=== PATIENT | female | born 1940 | race Caucasian/White ===

== ENCOUNTER 2024-04-29 13:15 | Emergency (ER) | payer MEDICARE, SELFPAY ==
[2024-04-29 13:26] VITALS: BP 151/64; PULSE 72; RESP 16; TEMP 36.2; O2SAT 100; BMI 30.2
--- NOTE | 2024-04-29 13:32 | CRLHL7_ITS ---
For Patients: As a result of the Century Cures Act, medical imaging exams and procedure reports are released immediately into your electronic medical record. You may view this report before your referring provider. If you have questions, please contact your health care provider. INDICATION: Fall. On Eliquis. TECHNIQUE: CT head without contrast. COMPARISON: None. FINDINGS: Mild generalized volume loss, changes of chronic small vessel ischemic disease and remote lacunar infarct about the left basal ganglia. Intracranial atherosclerosis. There is no mass effect or midline shift. No hydrocephalus. No CT evidence of acute hemorrhage or infarction. No abnormal extra-axial fluid collection. Bone windows show no acute calvarial fracture. Paranasal sinuses and orbits as imaged are unremarkable. IMPRESSION: No acute intracranial abnormality. Dictated by Colten Pavon MD @ 04/29/2024 2:38:16 PM Please note that all CT scans at this facility use dose modulation, iterative reconstruction, and/or weight-based dosing when appropriate to reduce radiation dose to as low as reasonably achievable. Dictated by: Colten Pavon MD @ 04/29/2024 14:38:31 (Electronically Signed)
--- NOTE | 2024-04-29 15:01 | ED.FALL ---
HPI - Fall General Time Seen by Provider: 15:01 Date Seen: 04/29/24 Chief Complaint: Fall/Minor Trauma Stated Complaint: fell, was advised to be seen Time Seen by Provider: 04/29/24 14:48 Source: patient and RN notes reviewed Mode of arrival: ambulatory Limitations: no limitations History of Present Illness HPI Narrative: This 83yo female is brought in by family after falling and hitting her head. She was reaching for weights in a cupboard where her was exercising, doing his physical therapy. She looked up, lost her balance, fell backwards on the rowing machine and fell to the ground, hitting her head on the bike and the rowing machine. She did hit the inner part of her left ankle, it hurts to touch but there is absolutely no pain with ambulation. Her neck feels stiff, does hurt a bit when she turns to the left. Her left shoulder is hurting, thinks she may have pulled it somehow. No numbness tingling. She absolutely has no headache, no visual changes. No difficulty breathing, no chest wall pain, no abdominal pain. She has been ambulatory, there is no pain in her lower extremities with walking. She is on Eliquis for recent diagnosis of a blood clot. Nursing staff did do head CT on arrival appropriately and was able to review with the patient that this is not showing any acute traumatic change. Due to the volume and acuity in the ED, the patient did wait to be seen. MD complaint: fall Related Data Home Medications ?Medication ?Instructions ?Recorded ?Confirmed albuterol sulfate 90 mcg/actuation inhalation 04/29/24 aerosol inhaler (Ventolin HFA) apixaban 5 mg (74 tabs) tablets in mg PO 04/29/24 a dose pack (Eliquis DVT-PE Treat 30D Start) citalopram 20 mg tablet 20 mg PO QAM 04/29/24 04/29/24 esomeprazole magnesium 40 mg 40 mg PO QAM 04/29/24 04/29/24 capsule,delayed release estradiol 0.01% (0.1 mg/gram) 1 g vaginal 3XW 04/29/24 04/29/24 vaginal cream ezetimibe 10 mg tablet 10 mg PO DAILY 04/29/24 04/29/24 metformin 500 mg tablet,extended 500 mg PO QPM 04/29/24 04/29/24 release 24 hr mirabegron 25 mg tablet,extended 25 mg PO DAILY 04/29/24 04/29/24 release 24 hr (Myrbetriq) pantoprazole 40 mg tablet,delayed 40 mg PO QAM 04/29/24 04/29/24 release propranolol 60 mg capsule,24 60 mg PO DAILY 04/29/24 04/29/24 hr,extended release valsartan 160 mg tablet 160 mg PO DAILY 04/29/24 04/29/24 Allergies Allergy/AdvReac Type Severity Reaction Status Date / Time shellfish derived Allergy Severe Anaphylaxis Verified 04/29/24 13:26 codeine Allergy Intermediate Hives Verified 04/29/24 13:26 nitroglycerin Allergy Intermediate Hives Verified 04/29/24 13:26 [From Nitro-Bid] Penicillins Allergy Intermediate Hives Verified 04/29/24 13:26 Review of Systems Narrative: As per HPI. Exam Const: Vital Signs, click to edit/add: Vital Signs - 24 hr 04/29/24 13:26 Temperature 97.2 F L Pulse Rate [Pulse Oximeter] 72 Respiratory Rate 16 Blood Pressure [Ri ght Upper Arm] 151/64 H Pulse Oximetry 100 Oxygen Delivery Me thod Room Air This 83-year-old female is alert, interactive, no apparent distress. Face is atraumatic, no palpable tenderness spots over her scalp. Sclera clear, pupils equal round reactive. Speech is normal. No midline tenderness of her neck, she does have good range of motion of her neck but she states it feels a little stiff and painful along the left superior aspect in the paraspinous area. Otherwise no adenopathy, no thyromegaly masses or nodules. No midline tenderness over spine in her back. Lungs are clear, good air entry, wheezing or crackles. CV regular rate and rhythm, no murmur, normal S1-S2, no S3-S4. Abdomen is soft, nontender, nondistended. She has pain on range of motion of her left shoulder, gets painful when you get up to an arc of abduction about 90?. There is definite range of motion within the glenohumeral joint, no dislocation. Strength of her lower extremities is 5/5 and symmetric below the shoulder. She has no ecchymosis, erythema about the left ankle. The malleoli are nontender. Joint effusion is not present. She is ambulatory with a normal gait on examination, complains of no pain. Documenting provider has reviewed patient's vital signs: yes Course Course ED Course: Reviewed with patient that I do think we should get a neck CT just to ensure no underlying fracture. She is neurologically intact at this point, not altered, thus, will allow patient to splint her own neck. Will also get a left shoulder x-ray. We did discuss the possibility of traumatic tearing of the rotator cuff. With her pain, do think that we should make sure x-ray is negative. If she has ongoing shoulder pain, may need physical therapy and orthopedic evaluation. Reevaluation(s) Time of Reevaluation #1: 16:51 Reevaluation #1: Have reviewed the imaging reports. She has some degenerative changes in her cervical spine but no acute fracture. She did have the incidental finding of carotid calcification seen on the CT imaging of the neck. Have reviewed this, this should be further evaluated with carotid ultrasounds to see if there is any significant stenosis. She should talk to her primary care provider about this, certainly risk factor reduction should be undertaken. There is no fracture of the shoulder but there are some arthritis changes. Vital Signs Vital signs: Initial Vital Signs Temperature 97.2 F L 04/29/24 13:26 Temperature Source Temporal Artery Scan 04/29/24 13:26 Pulse Rate 72 04/29/24 13:26 Respiratory Rate 16 04/29/24 13:26 Blood Pressure 151/64 H 04/29/24 13:26 Blood Pressure Mean 93 04/29/24 13:26 Pulse Oximetry 100 04/29/24 13:26 Oxygen Delivery Method Room Air 04/29/24 13:26 Vital Signs Temperature 97.2 F L 04/29/24 13:26 Pulse Rate 72 04/29/24 13:26 Respiratory Rate 16 04/29/24 13:26 Blood Pressure 151/64 H 04/29/24 13:26 Pulse Oximetry 100 04/29/24 13:26 Oxygen Delivery Method Room Air 04/29/24 13:26 Temperature 97.2 F L 04/29/24 13:26 Pulse Rate 72 04/29/24 13:26 Respiratory Rate 16 04/29/24 13:26 Blood Pressure 151/64 H 04/29/24 13:26 Pulse Oximetry 100 04/29/24 13:26 Oxygen Delivery Method Room Air 04/29/24 13:26 MDM - Fall Imaging Data CT scan - head: Attestation: I have reviewed the pertinent imaging results. Radiologist's impression: Patient: MINI CASTILLO Facility:?[facility] Patient ID:?[id number] Site Patient ID:?[id number] Site :?[id number] Study:?CT-Head W/O-04/29/2024 2:06:54 PM Ordering Physician:JUDD LEARY Final Report: INDICATION: Fall. On Eliquis. TECHNIQUE: CT head without contrast. COMPARISON: None. FINDINGS: Mild generalized volume loss, changes of chronic small vessel ischemic disease and remote lacunar infarct about the left basal ganglia. Intracranial atherosclerosis. There is no mass effect or midline shift. No hydrocephalus. No CT evidence of acute hemorrhage or infarction. No abnormal extra-axial fluid collection. Bone windows show no acute calvarial fracture. Paranasal sinuses and orbits as imaged are unremarkable. IMPRESSION: No acute intracranial abnormality. Dictated by Colten Pavon MD @ 04/29/2024 2:38:16 PM Please note that all CT scans at this facility use dose modulation, iterative reconstruction, and/or weight-based dosing when appropriate to reduce radiation dose to as low as reasonably achievable. Dictated by: Colten Pavon MD @ 04/29/2024 14:38:31 (Electronic Signature) CT cervical spine: Attestation: I have reviewed the pertinent imaging results. Radiologist's impression: Patient: MINI CASTILLO Facility:?[facility] Patient ID:?[id number] Site Patient ID:?[id number]. Site :?[id number] Study:?CT-Spine Cervical -04/29/2024 3:48:39 PM Ordering Physician:Ruth Davila Final Report: Indication: Fall, neck pain Technique: Noncontrast axial CT of the cervical spine with coronal and sagittal reformats. Comparison: Same-day CT head Findings: Slight reversal of the normal cervical lordosis. Degenerative grade 1 anterolisthesis at C3-4, C4-5 and C7-T1. Craniocervical junction appears within normal limits. No acute fracture identified. Scattered spondylosis, with shallow posterior disc-osteophyte complexes at C5-6 and C6-7 contributing to mild spinal canal narrowing. Uncovertebral and facet arthropathy contribute to multilevel neural foraminal stenosis, greatest on the left at C3-4, bilaterally at C5-6 and C6-7. No suspicious findings identified in the paraspinal soft tissues. Calcific plaquing at the carotid bifurcations. Included lung apices are clear. Staging Technician images demonstrate reverse right shoulder arthroplasty. Impression: 1. No evidence of acute fracture or traumatic malalignment in the cervical spine. 2. Cervical spondylosis as detailed. Please note that all CT scans at this facility use dose modulation, iterative reconstruction, and/or weight-based dosing when appropriate to reduce radiation dose to as low as reasonably achievable. Dictated by Niecy Ernst MD @ 04/29/2024 4:09:31 PM (Electronic Signature) XR left shoulder: Attestation: I have reviewed the pertinent imaging results. My impression: I do not appreciate any acute fracture on my preliminary review of the shoulder x-rays. Radiologist's impression: Patient: MINI CASTILLO Facility:?[facility] Patient ID:?[id number] Site Patient ID:?[id number]. Site :?[id number] Study:?XRay-Shoulder Left 3 VIEW-04/29/2024 3:38:41 PM Ordering Physician:Ruth Davila Final Report: Indication: Fall Technique: Four views of the left shoulder Comparison: None Findings/impression : Normal alignment and mineralization, without displaced fracture, dislocation or suspicious bony lesion. Degenerative changes are present within the acromioclavicular and glenohumeral joints. There are no soft tissue radiopaque foreign bodies. Dictated by Ant Alexandre MD @ 04/29/2024 4:38:46 PM (Electronic Signature) Discharge Plan Discharge Clinical Impression: Acute neck pain, Acute pain of left shoulder Fall Qualifiers: Encounter type: initial encounter Qualified Code(s): W19.XXXA - Unspecified fall, initial encounter Closed head injury Qualifiers: Encounter type: initial encounter Qualified Code(s): S09.90XA - Unspecified injury of head, initial encounter Patient Disposition: Home, Self-Care Condition: Stable Instructions: Fall Prevention for Older Adults (ED), Head Injury (ED), Shoulder Pain (ED), Acute Neck Pain (ED) Additional Instructions: Use Tylenol per bottle directions as needed for any pain control. Can try ice or heat to the neck and shoulder and use which helps alleviate your discomfort. If you have ongoing left shoulder pain, may need to see physical therapy and be evaluated by Orthopedics for consideration of rotator cuff issues from the fall. Please follow-up with your primary care provider with any ongoing concerns from this fall, also give of the cervical spine CT report to them so that they are aware that there is calcific plaque seen at carotid bifurcations and underlying degenerative cervical spine changes. Would talk to your primary care provider about obtaining a carotid ultrasound to screen further for carotid stenosis which is a potential stroke risk. Activity Level: Activity as Tolerated Prescriptions: No Action propranolol 60 mg capsule,extended release 24 hr 60 mg PO DAILY citalopram 20 mg tablet 20 mg PO QAM pantoprazole 40 mg tablet,delayed release (DR/EC) 40 mg PO QAM esomeprazole magnesium 40 mg capsule,delayed release(DR/EC) 40 mg PO QAM estradiol 0.01 % (0.1 mg/gram) cream 1 g vaginal 3XW albuterol sulfate [Ventolin HFA] 90 mcg/actuation HFA aerosol inhaler inhalation metformin 500 mg tablet extended release 24 hr 500 mg PO QPM valsartan 160 mg tablet 160 mg PO DAILY ezetimibe 10 mg tablet 10 mg PO DAILY mirabegron [Myrbetriq] 25 mg tablet extended release 24 hr 25 mg PO DAILY Aileenqucaitlin DVT-PE Treat 30D Start 5 mg (74 tabs) tablets,dose pack PO Follow Up/Referrals: Provider,Not a Local [Primary Care Provider] - Stand Alone Forms: [employer] Info Instructions
--- NOTE | 2024-04-29 15:20 | CRLHL7_ITS ---
For Patients: As a result of the Cures Act, medical imaging exams and procedure reports are released immediately into your electronic medical record. You may view this report before your referring provider. If you have questions, please contact your health care provider. Indication: Fall Technique: Four views of the left shoulder Comparison: None Findings/impression : Normal alignment and mineralization, without displaced fracture, dislocation or suspicious bony lesion. Degenerative changes are present within the acromioclavicular and glenohumeral joints. There are no soft tissue radiopaque foreign bodies. Dictated by Ant Alexandre MD @ 04/29/2024 4:38:46 PM (Electronically Signed)
--- NOTE | 2024-04-29 15:20 | CRLHL7_ITS ---
For Patients: As a result of the Century Cures Act, medical imaging exams and procedure reports are released immediately into your electronic medical record. You may view this report before your referring provider. If you have questions, please contact your health care provider. Indication: Fall, neck pain Technique: Noncontrast axial CT of the cervical spine with coronal and sagittal reformats. Comparison: Same-day CT head Findings: Slight reversal of the normal cervical lordosis. Degenerative grade 1 anterolisthesis at C3-4, C4-5 and C7-T1. Craniocervical junction appears within normal limits. No acute fracture identified. Scattered spondylosis, with shallow posterior disc-osteophyte complexes at C5-6 and C6-7 contributing to mild spinal canal narrowing. Uncovertebral and facet arthropathy contribute to multilevel neural foraminal stenosis, greatest on the left at C3-4, bilaterally at C5-6 and C6-7. No suspicious findings identified in the paraspinal soft tissues. Calcific plaquing at the carotid bifurcations. Included lung apices are clear. Ham Doctor images demonstrate reverse right shoulder arthroplasty. Impression: 1. No evidence of acute fracture or traumatic malalignment in the cervical spine. 2. Cervical spondylosis as detailed. Please note that all CT scans at this facility use dose modulation, iterative reconstruction, and/or weight-based dosing when appropriate to reduce radiation dose to as low as reasonably achievable. Dictated by Niecy Ernst MD @ 04/29/2024 4:09:31 PM (Electronically Signed)
== END 2024-04-29 17:04 | disposition home or self-care (01) ==
PROVIDERS: Emergency Provider Family Medicine
DX: S09.90XA Unspecified injury of head, initial encounter (principal); M54.2 Cervicalgia; M25.512 Pain in left shoulder; W18.30XA Fall on same level, unspecified, initial encounter
CPT/HCPCS: 70450; 72125; 73030; 99284; 99285